=== PATIENT | female | born 1960 | race Caucasian/White ===

== ENCOUNTER → 2020-06-18 | Outpatient (REF) | payer OTHER | LOC: M LAB REF 09:19 | PROVIDERS: ATTEND Physician Assistant | DX: L82.1 Other seborrheic keratosis (principal) ==

== ENCOUNTER → 2020-09-25 | Outpatient (REF) | payer OTHER | LOC: M SFHCRHEU 14:05 | PROVIDERS: ATTEND Internal Medicine | DX: L30.9 Dermatitis, unspecified (principal) ==

== ENCOUNTER → 2020-10-07 | Outpatient (REF) | payer OTHER | LOC: M LAB REF 17:14 | PROVIDERS: ATTEND Physician Assistant | DX: R20.9 Unspecified disturbances of skin sensation (principal) ==

== ENCOUNTER → 2024-08-21 | Outpatient (REF) | payer OTHER | LOC: M SFHCDERM 17:57 | PROVIDERS: ATTEND Physician Assistant | DX: L82.1 Other seborrheic keratosis (principal) ==

== ENCOUNTER → 2025-04-04 | Outpatient (REF) | payer OTHER | LOC: M SFHCDERM 09:25 | PROVIDERS: ATTEND Physician Assistant | DX: C44.319 Basal cell carcinoma of skin of other parts of face (principal) ==